=== PATIENT | female | born 1935 | race Caucasian/White ===

== ENCOUNTER 2017-04-20 12:39 | Inpatient (IN) ==
[2017-04-20 13:29] LABS: MANUAL DIFF NEEDED? NO
[2017-04-20 13:30] LABS: EOS# 0.29 X1000 (0.0-0.7); EOS% 3.8 % (0.0-10.0); HEMATOCRIT 33.3 % (37.0-47.0); HEMOGLOBIN 10.6 g/dL (12.0-16.0); LYMPH# 1.35 X1000 (1.2-3.4); LYMPH% 17.8 % (20.5-51.1); MCH 29.8 PG (27-31); MCHC 31.8 g/dL (33-37); MCV 93.5 FL (81-99); MONO# 0.66 X1000 (0.11-0.59); MONO% 8.7 % (1.7-9.3); MPV 11.3 FL (7.4-10.4); NEUT% 69.7 % (42.2-75.2); PLT 191 X1000 (130-400); RBC 3.56 XMIL (4.2-5.4)
[2017-04-20 13:42] LABS: URINE CULTURE PL NEEDED? NO
[2017-04-20 13:48] LABS: ALBUMIN 3.6 g/dL (3.5-5.0); CALCIUM 8.7 mg/dL (8.8-10.2); POTASSIUM 3.7 mmol/L (3.5-5.1); TOTAL BILIRUBIN 0.2 mg/dL (0.20-1.00); TOTAL PROTEIN 6.3 g/dL (6.3-8.3)
[2017-04-20 13:49] LABS: BILIRUBIN URINE NEGATIVE (NEGATIVE); BLOOD URINE NEGATIVE (NEGATIVE); CLARITY CLEAR (CLEAR); COLOR YELLOW; GLUCOSE URINE NEGATIVE (NEGATIVE); LEUKOCYTES URINE TRACE (NEGATIVE); NITRITE URINE NEGATIVE (NEGATIVE); PROTEIN URINE NEGATIVE (NEGATIVE); UROBILINOGEN URINE NORMAL
[2017-04-20 13:51] LABS: URINE EPITHELIAL CELLS <10 /HPF (<10); URINE SOURCE CLEAN CATCH; URINE WBC <10 /HPF (<10)
[2017-04-20] MEDS ORDERED: MORPHINE IV ONE (14:23)
[2017-04-20] MEDS ORDERED: ZOFRAN IV ONE (14:23)
--- NOTE | 2017-04-20 14:27 | EKG Report ---
Test Performed on : 04/20/2017 1:44:55 PM Test Reason : CP Blood Pressure : / mmHG Vent. Rate : 056 BPM Atrial Rate : 056 BPM P-R Int : 208 ms QRS Dur : 074 ms QT Int : 474 ms P-R-T Axes : 073 108 059 degrees QTc Int : 457 ms Sinus bradycardia. Rightward axis Possible Anterior infarct (cited on or before 17-MAY-2016) Abnormal ECG When compared with ECG of 17-MAY-2016 15:58, QRS axis shifted right Unconfirmed Result
--- NOTE | 2017-04-20 16:08 | Diag Imaging Result Doc PS360 ---
RENAL STONE SEARCH - 04/20/2017 INDICATION: abdominal pain TECHNIQUE: A CT dose reduction protocol was used. COMPARISON: CT lumbar spine 12/09/2015 FINDINGS: There is a moderate hiatal hernia. There is an implanted spinal device at the left abdomen. Stable severe scoliosis with surgical changes and severe degeneration of the thoracolumbar spine. There is a right hip prosthesis. There is severe degeneration of the sacroiliac joints. No acute bony lesions or changes from prior. There are cholecystectomy clips. No radiodense renal stones. No hydronephrosis or hydroureter. Uterus is absent. Urinary bladder and rectum are normal. There are some scattered diverticula of the sigmoid colon. No bowel obstruction or inflammation. There is some edema about the pancreas mostly the pancreatic head but also extending into the body and tail suggesting acute pancreatitis. No drainable fluid collections. No free air. IMPRESSION: 1. Acute pancreatitis worst at the pancreatic head. 2. There has been cholecystectomy. No biliary dilation. 3. Other chronic changes stable from prior. Electronically signed by Jone Miranda 04/20/2017 4:06 PM
--- NOTE | 2017-04-20 16:26 | PROVIDER DOCUMENTATION ---
This chart was entered by Kyra Rose Scribe, acting as scribe for Cheryl Garcia MD. HPI-Abdominal Pain/GI Problem - General Chief Complaint: Abdominal Pain Stated Complaint: ABDOMEN PAIN Time Seen by Provider: 04/20/17 12:55 Source: patient Allergies/Adverse Reactions: Patient Allergies Allergy/AdvReac Type Severity Reaction Status Date / Time acetaminophen [From Percocet] AdvReac NAUSEA/VOMI Verified 05/17/16 12:16 TING butorphanol tartrate * AdvReac ANAPHYLAXIS Verified 05/17/16 12:16 [From Stadol] codeine AdvReac NAUSEA/VOMI Verified 05/17/16 12:16 TING meperidine HCl * AdvReac NAUSEA/VOMI Verified 05/17/16 12:16 [From Demerol] TING nalbuphine HCl * AdvReac ANAPHYLAXIS Verified 05/17/16 12:16 [From Nubain] oxycodone HCl * AdvReac NAUSEA/VOMI Verified 05/17/16 12:16 [From Percocet] TING Home Medications: Home Medication List Medication Instructions Recorded Confirmed Last Taken Type Aspirin 81 mg PO DAILY 12/09/15 04/20/17 04/19/17 History Atenolol 50 mg PO DAILY 12/09/15 04/20/17 04/19/17 History Furosemide 40 mg PO DAILY 12/09/15 04/20/17 04/19/17 History Gabapentin [Neurontin] 300 mg PO TID 12/09/15 04/20/17 04/19/17 History Isosorbide Mononitrate E.r. [Imdur] 60 mg PO DAILY 12/09/15 04/20/17 04/19/17 History Lisinopril 20 mg PO DAILY 12/09/15 04/20/17 04/19/17 History Morphine ARCH CUSHION PRESS OPERATOR 30 mg IV DAILY 12/09/15 04/20/17 04/20/17 History Multivitamin [Multivitamins] 1 each PO DAILY 12/09/15 04/20/17 04/19/17 History Omeprazole 20 mg PO DAILY 12/09/15 04/20/17 04/19/17 History Potassium Chloride E.r. [Klor-Con] 20 meq PO DAILY 12/09/15 04/20/17 04/19/17 History Ranolazine [Ranexa] 500 mg PO BID 12/09/15 04/20/17 04/19/17 History - History of Present Illness-ABD Nature of Presenting Problems: Pt is 81 y/o F presents to the ED via EMS for epigastric pain. Pt states pain started 2 hrs ago. Pt states pain is gone presently. Pt states N and denies V Abdominal Pain Onset Location: reports: epigastric Pain Radiation: reports: no radiation Quality of Pain: reports: aching Severity in ED: reports: mild Onset/Duration: reports: 1-3 hours ago (2 hrs ago) Timing: reports: still present Activities at Onset: reports: light activity Modifying Factors: improves with: nothing Associated Symptoms: reports: nausea. denies: anxiety, arm pain, back/neck pain , chest pain, constipation, cough, diaphoresis, diarrhea, dizziness, EENT symptoms, fatigue, fever/chills, genitourinary problems, headaches, heartburn, joint pain, loss of appetite, malaise, muscle aches, sinus congestion/drainage, rash, seizure, shortness of breath, sensory/motor loss, pain with inspiration, swelling/mass in abdomen, syncope, vomiting, weakness, trouble walking Last BM: unsure Dark Stools Present?: reports: none noticed Rectal Bleeding: reports: none Rectal Pain: reports: none Emesis Description: reports: none Bruising or Bleeding Gums?: No Similar Symptoms Previously?: No Recently seen or treated by another doctor?: No Review of Systems - Adult - REVIEW OF SYSTEMS - ADULT Constitutional: reports: no symptoms reported Eyes: reports: no symptoms reported Ears, Nose, Mouth & Throat: reports: no symptoms reported Cardiovascular: reports: no symptoms reported Respiratory: reports: no symptoms reported Gastrointestinal: reports: abdominal pain (epigastric), nausea. denies: diarrhea, vomiting Genitourinary: reports: no symptoms reported Musculoskeletal: reports: no symptoms reported Integumentary: reports: no symptoms reported Neurological: reports: no symptoms reported Psychiatric: reports: no symptoms reported Endocrine: reports: no symptoms reported Hematologic/Lymphatic: reports: no symptoms reported Allergic/Immunologic: reports: no symptoms reported All Other Systems: Reviewed and Negative Past History - Adult - PAST MEDICAL HISTORY-ADULT Review of Records: reports: Nursing Assessment Review, Medications Reviewed, Social history reviewed & non-contributory. Major Childhood Illnesses: reports: denies history Cardiovascular: reports: CHF, HTN Respiratory: reports: denies history Gastrointestinal: reports: denies history Obstetrical/Gynecological: reports: denies history Genitourinary: reports: denies history Musculoskeletal: reports: denies history Neurological: reports: denies history Endocrine/Immune: reports: denies history Other Conditions: reports: denies history - PRIOR SURGERIES/PROCEDURES Surgical/Procedure History: reports: cholecystectomy, hysterectomy, joint replacement (total knee) - IMMUNIZATION STATUS Childhood Immunizations: See Nurse Assessment Flu Vaccine: See Nurse Assessment - FAMILY HISTORY Family History: reviewed, not pertinent - SOCIAL HISTORY Smoking: denies Substance Use: denies Living Situation: family Physical Exam-General - PHYSICAL EXAM-ADULT Initial Vital Signs Reviewed: Yes - CONSTITUTIONAL General Appearance: appears well, alert, no apparent distress - EYES Eyes: PERRL/EOMI, pink conjunctivae - HEAD, EARS, NOSE, MOUTH & THROAT HENMT: normocephalic/atraumatic, moist mucous membranes, normal ENT inspection - NECK Neck: non-tender, normal inspection - RESPIRATORY Respiratory: chest non-tender, lungs clear, normal breath sounds - CARDIOVASCULAR Cardiovascular: normal peripheral pulses, regular rate, rhythm - GASTROINTESTINAL (ABDOMEN) Abdominal Exam: normal bowel sounds, non tender, soft - LYMPHATIC Lymphatic: no adenopathy - MUSCULOSKELETAL Back Exam: normal inspection Extremity: normal range of motion, normal inspection - SKIN Integumentary: normal color, normal turgor, warm/dry - NEUROLOGIC Neurologic: grossly normal - PSYCHIATRIC Psych/Mental Status: normal mood/affect, oriented x 3 Progress - PLAN OF CARE/RESULTS Progress/Plan/Lab Results: Vital Signs - 8 hr 04/20/17 12:46 04/20/17 12:54 Temperature 97.2 F L Pulse Rate 60 Respiratory Rate 20 Blood Pressure 148/089 O2 Sat by Pulse Oximetry 97 Orders Category Date Time Status Saline Loc DIRECTED Care 04/20/17 13:06 Active NPO Diet 04/20/17 13:06 Active FLAT/UPRIGHT ABD/1 VIEW CHEST [RAD] Stat Exams 04/20/17 13:05 Ordered AMYLASE [CHEM] Stat Lab 04/20/17 13:06 Ordered CBC WITH ELECTRONIC DIFF [HEME] Stat Lab 04/20/17 13:06 Ordered COMPREHENSIVE METABOLIC PANEL [CHEM] Stat Lab 04/20/17 13:06 Ordered LIPASE [CHEM] Stat Lab 04/20/17 13:06 Ordered TROPONIN T Stat Lab 04/20/17 13:[address] W/POSS RFLX CULT [URINALYSIS] Stat Lab 04/20/17 13:06 Uncollected Result Diagrams: 04/20/17 13:24 04/20/17 13:24 - EKG 1 Time of EKG reading by physician:: 13:44 EKG Read and Signed by:: Cheryl Garcia EKG Interpretation (*Must complete 3 of following elements*): Abnormal Rate: 56 Rhythm: sinus bradycardia Comments: rightward axis; possible anterior infarct, age undetermined - CT/MRI 1 CT Study: Renal Stone Impression: Abnormal (there has been cholecystectomy. no biliary dilation. other chronic changes stable from prior.) CT Results: acute pancreatitis worst at the pancreatic head - CONSULTS/PCP/HOSPITALIST Notification #1 *Consult/PCP/Hospitalist*: Dr. Jensen Time Discussed: 16:22 (Hospitalist accepted admit ) Reason/Comments: Dr. Garcia consulted with Dr. Jensen about Pt Consult Disposition: Admit Departure - Departure Date of Disposition Decision: 04/20/17 Time of Disposition Decision: 16:22 DIAGNOSIS: Pancreatitis Disposition: ADMITTED INPATIENT 09 Certified Medical Emergency: Emergent Condition: Stable Referrals and Follow-Ups: None,PCP [Primary Care Provider] - - Critical Care Note This patient required my direct & personal management of CC.: No This chart was documented by the indicated scribe, (Kyra Rose Scribe) and accurately reflects the services I performed and decisions made by me, Cheryl Garcia MD, as attested by the provider's signature.
[2017-04-20] MEDS ORDERED: TYLENOL PO PRN (18:30)
[2017-04-20] MEDS ORDERED: ZOFRAN IV PRN (18:30)
[2017-04-20] MEDS: NS 1,000 ML IV SCH (19:25)
[2017-04-20] MEDS: MORPHINE IV PRN ×2 (19:25→23:23)
[2017-04-20] MEDS: ZOSYN 3.375 GM/NS 3.375 GM/50 ML IVPB IV SCH (20:15)
[2017-04-20] MEDS: RANEXA PO SCH ×2 (20:15→20:19)
[2017-04-21] MEDS: ZOSYN 3.375 GM/NS 3.375 GM/50 ML IVPB IV SCH ×4 (00:59→17:24)
[2017-04-21] MEDS: MORPHINE IV PRN ×5 (04:08→22:42)
[2017-04-21] MEDS ORDERED: PRILOSEC PO SCH (07:00)
[2017-04-21 07:39] LABS: HEMATOCRIT 36.1 % (37.0-47.0); HEMOGLOBIN 11.1 g/dL (12.0-16.0); MCH 29.1 PG (27-31); MCHC 30.7 g/dL (33-37); MCV 94.8 FL (81-99); MPV 11.6 FL (7.4-10.4); RBC 3.81 XMIL (4.2-5.4)
[2017-04-21 07:57] LABS: AGAP 11; ALBUMIN 3.4 g/dL (3.5-5.0); ALKALINE PHOSPHATASE 158 U/L (32-104); BUN 24 mg/dL (8-22); CALCIUM 8.8 mg/dL (8.8-10.2); CHLORIDE 103 mmol/L (98-107); COSMO 288; GOT 424 U/L (10-30); GPT 396 U/L (10-36); HDL 49 mg/dL (45-65); LDL 36 mg/dL; POTASSIUM 3.7 mmol/L (3.5-5.1); SODIUM 143 mmol/L (136-145); TCO2 30 mmol/L (25-35); TOTAL PROTEIN 5.9 g/dL (6.3-8.3); TRIGLYCERIDES 54 mg/dL (35-135); VLDL 11 mg/dL
[2017-04-21 08:04] LABS: LIPASE 547 U/L (13-60)
[2017-04-21] MEDS: NS 1,000 ML IV SCH (08:06)
[2017-04-21] MEDS: RANEXA PO SCH (08:07)
[2017-04-21] MEDS: NEURONTIN PO SCH ×2 (08:15→12:25)
[2017-04-21] MEDS ORDERED: KLOR-CON PO SCH (09:00)
[2017-04-21] MEDS ORDERED: PATIENT'S OWN MED SCH (09:00)
[2017-04-21] MEDS ORDERED: THERA M PLUS PO SCH (09:00)
[2017-04-21] MEDS ORDERED: PRINIVIL PO SCH (09:00)
[2017-04-21] MEDS ORDERED: ASPIRIN PO SCH (09:00)
[2017-04-21] MEDS ORDERED: IMDUR PO SCH (09:00)
[2017-04-21] MEDS ORDERED: TENORMIN PO SCH (09:00)
[2017-04-21] MEDS ORDERED: LASIX PO SCH (09:00)
--- NOTE | 2017-04-21 09:03 | Diag Imaging Result Doc PS360 ---
EXAM: FLAT/UPRIGHT ABD/1 VIEW CHEST HISTORY: Epigastric pain TECHNIQUE: Flat and upright abdomen with AP chest COMMENT: There is rotoscoliosis of the lumbar spine with convexity to the left. There is apparently been fusion from the L1 level down. The bowel gas pattern is nonspecific. There are surgical clips in the right upper quadrant. There is severe degenerative change in the sacroiliac joints bilaterally. The aorta is calcified but not apparently distended. The appearance of the chest has not changed significantly since the previous study of 05/17/2016. IMPRESSION: Nonspecific abdomen. Stable chest. Electronically signed by Manuel Gallegos 04/21/2017 9:01 AM
--- NOTE | 2017-04-21 09:54 | PROGRESS NOTE ---
DATE: 04/21/2017 SUBJECTIVE: The patient notes that she is feeling a little bit better this morning. Still having abdominal pain, still nauseated, but she also just woke up. Denies any chest pain or palpitations. Denies any fevers or chills. OBJECTIVE: Vital Signs: Reviewed. Temperature 97 degrees, pulse 67 respiratory 20, BP 160/90 to 174/82. General: Patient is awake, alert. She is currently in no respiratory distress. Pleasant to talk with. Neck: Supple. CV: Regular rate. Chest: Clear. Abdomen: Soft, slightly tender in the epigastric region although better than yesterday. Positive bowel sounds. Extremities: Moves all extremities. No edema. Neurologic: No focal changes. DIAGNOSTIC DATA: Pending. ASSESSMENT: 1. Acute pancreatitis. 2. Hypertension. 3. Chronic pain. 4. Chronic neuropathy. PLAN: We will continue patient's current medications. We will check her labs. If amylase and lipase are improving, then we will try to advance her diet. Further orders as needed. cc: Fox eJnsen MD
--- NOTE | 2017-04-21 14:39 | HISTORY AND PHYSICAL ---
CHIEF COMPLAINT: Upper GI pain. HISTORY OF PRESENT ILLNESS: This is an 81-year-old female who presented to the emergency room via EMS complaining of epigastric pain. She stated it started 2 hours prior to coming to the emergency room. By the time she got to the emergency room pain had subsided. She described this as an aching type pain with no radiation, no accompanying symptoms. No aggravating or alleviating symptoms. It was a spontaneous start and stop. She denies having this pain before. She has had some nausea over the past day or [address] scan was performed which revealed acute pancreatitis worse at the pancreatic head, a moderate-sized hiatal hernia. She was noted to have an amylase of 138, lipase of 447. She was given morphine and Zofran in the emergency room and admitted for further evaluation and treatment. PAST MEDICAL HISTORY: Hypertension. CAD. Chronic pain with a pain pump in her left lower abdomen with morphine. Reportedly CHF. PAST SURGICAL HISTORY: Cholecystectomy, hysterectomy, total knee replacement and pain pump insertion. SOCIAL HISTORY: She denies alcohol, tobacco, or illicit drug use. ALLERGIES: Tylenol, Percocet. Percocet causes nausea and vomiting. Stadol causes anaphylaxis. Codeine with nausea and vomiting. Demerol nausea and vomiting. Nubain anaphylaxis. HOME MEDICATIONS: Klor-Con 20 mEq daily. Atenolol 50 daily. Aspirin 81 mg daily. Imdur 60 daily. Neurontin 300 t.i.d. Furosemide 40 daily. Omeprazole 20 daily. Multivitamin daily. Morphine via pain pump. Lisinopril 20 mg daily and Ranexa 500 b.i.d. REVIEW OF SYSTEMS: A 14 point review of systems is discussed with the patient with pertinent positives stated in HPI. She denied palpitations, dizziness, syncope, chest pain, vomiting, diarrhea, constipation, black or bloody vomitus, black or bloody stools, any hematuria, dysuria, frequency, urgency. PHYSICAL EXAMINATION: GENERAL: This is an 81-year-old female who is sitting up in the bed, in no distress. VITAL SIGNS: Blood pressure is 170/80 with a heart rate of 66, respirations are 18, temperature is 98.2 degrees with room air saturations of 98-100%. HEENT: Head is normocephalic, atraumatic. Pupils equal, round, react to light. EOMs are intact. Sclerae anicteric. Mucous membranes are dry. NECK: Supple. Trachea midline. CARDIOVASCULAR: Regular rate and rhythm. S1, S2 appreciated. PULMONARY: Breath sounds are clear. No increased work of breathing noted. GASTROINTESTINAL: Abdomen is soft, nondistended with bowel sounds in all 4 quadrants. MUSCULOSKELETAL: Good range of motion of joints. NEUROLOGIC: She is alert and oriented x3. EXTREMITIES: No clubbing, cyanosis, or edema. Calves are nontender. Pulses are palpable x4. DIAGNOSTICS: WBC is 7.5 with hemoglobin 10.6, hematocrit 33.3. AST is 101, ALT 58 with a amylase of 138, lipase of 447. These labs were repeated. AST is 424, ALT 396, alkaline phosphatase 158 with amylase [address] scan revealed pancreatitis. ASSESSMENT AND PLAN: 1. Pancreatitis. 2. Hypertension. 3. History of CAD. 4. Chronic pain with pain pump in place. Morphine infusing. The patient will be admitted to the hospital. She will remain NPO. As labs have increased we will consult Dr. Maradiaga in Gastroenterology in hopes to transfer the patient to [facility] for further testing. We will identify her home medications and continue as appropriate. Further treatments pending hospital course. Dictated by CLAUDINE Alex for Fox Jensen MD cc: CLAUDINE Alex MD
[2017-04-21] MEDS ORDERED: TYLENOL PO PRN (17:00)
[2017-04-21] MEDS ORDERED: ZOFRAN IV PRN (17:00)
[2017-04-21] MEDS ORDERED: NEURONTIN PO SCH (17:00)
[2017-04-21] MEDS ORDERED: NS 1,000 ML IV SCH (17:00)
[2017-04-21] MEDS: LR 1,000 ML IV SCH (18:56)
--- NOTE | 2017-04-21 19:39 | PROGRESS NOTE ---
DATE: 04/21/2017 SUBJECTIVE: She presented from [facility] today. She basically presented because of abdominal pain and nausea. She was admitted there and it was found out that she has abnormal lab work and CT scan so she was referred here for Dr. Maradiaga to evaluate her. I reviewed all her lab work. ASSESSMENT: 1. Biliary pancreatitis. 2. Chronic pain on morphine pump. 3. Chronic neuropathy. 4. Hypertension. 5. History of cholecystectomy. 6. History of congestive heart failure. PLAN: We are going to keep the patient NPO so we will withhold all her p.o. medications at least for today until the acute pancreatic inflammation subsides and then we will restart her medications and feeding. Dr. Maradiaga has already been consulted hopefully for a plan of ERCP to look at CBD. Of note, the patient had a renal CT scan which picked up acute pancreatitis worse at the pancreatic head but there was no biliary dilation. I suspect this probably could be just sludge that she might have, but she is probably going to end up needing an ERCP to make sure there is no obstruction in the CBD. We will continue currently with the current antibiotics, PPI, hydration with lactated Ringer's and repeat her labs tomorrow morning. cc: Enio Al MD
[2017-04-21] MEDS ORDERED: BUSPAR PO SCH (21:00)
[2017-04-21] MEDS ORDERED: RANEXA PO SCH (21:00)
[2017-04-22] MEDS: DILAUDID IV PRN ×4 (00:46→09:35)
[2017-04-22] MEDS: ZOSYN 3.375 GM/NS 3.375 GM/50 ML IVPB IV SCH ×4 (00:53→20:00)
[2017-04-22] MEDS ORDERED: PRILOSEC PO SCH (07:00)
--- NOTE | 2017-04-22 08:07 | Diag Imaging Result Doc PS360 ---
EXAM: US ABDOMEN-COMPLETE HISTORY: Gall stone pancreatitis, check CBD size TECHNIQUE: COMPARISON: CT from 04/20/2017 FINDINGS: The majority of the pancreas is obscured. Portions of the head and body appear normal. The common bile duct near the ampulla measures 1.1 cm. Elsewhere the common bile duct measures between five and 10 mm. There is fatty infiltration of the liver. Spleen is not enlarged. No hydronephrosis to either kidney. No renal abnormalities. No ascites. The aorta and inferior vena cava are obscured. IMPRESSION: 1.The common bile duct measures between five and 11 mm 2.Fatty infiltration of the liver Electronically signed by Low Rodriguez 04/22/2017 8:05 AM
[2017-04-22 08:29] LABS: HEMOGLOBIN 11.7 g/dL (12.0-16.0); MCH 29.7 PG (27-31); MCHC 31.6 g/dL (33-37); MCV 93.9 FL (81-99); MPV 11.4 FL (7.4-10.4); RBC 3.94 XMIL (4.2-5.4)
[2017-04-22 08:38] LABS: CALCIUM 9.3 mg/dL (8.8-10.2); POTASSIUM 3.7 mmol/L (3.5-5.1); TOTAL BILIRUBIN 0.5 mg/dL (0.20-1.00); TOTAL PROTEIN 6.7 g/dL (6.3-8.3)
[2017-04-22] MEDS ORDERED: KLOR-CON PO SCH (09:00)
[2017-04-22] MEDS ORDERED: THERA M PLUS PO SCH (09:00)
[2017-04-22] MEDS ORDERED: ASPIRIN PO SCH (09:00)
[2017-04-22] MEDS ORDERED: IMDUR PO SCH (09:00)
[2017-04-22] MEDS ORDERED: PATIENT'S OWN MED SCH (09:00)
[2017-04-22] MEDS ORDERED: LASIX PO SCH (09:00)
[2017-04-22] MEDS ORDERED: PRINIVIL PO SCH (09:00)
[2017-04-22] MEDS ORDERED: TENORMIN PO SCH (09:00)
[2017-04-22] MEDS: LR 1,000 ML IV SCH ×3 (09:22→20:08)
[2017-04-22] MEDS ORDERED: NARCAN IV PRN (09:28)
[2017-04-22] MEDS: DILAUDID PCA VIAL IV PRN (09:53)
[2017-04-22 11:55] LABS: INR 1.05; PROTIME 11.1 Seconds (9.2-11.7)
[2017-04-22] MEDS ORDERED: NS 250 ML ONE (12:30)
--- NOTE | 2017-04-22 14:29 | PROGRESS NOTE ---
DATE: 04/22/2017 SUBJECTIVE: Today Ms. Gillespie referred to be doing a little better but she is tired. I understand she had a very rough night and they had to call Anesthesia for pain control. Patient is currently on a low dose of Dilaudid MARINE EQUIPMENT ENGINEER pump prescribed by the anesthesiologist. OBJECTIVE: Vital Signs: Blood pressure is 154/79, pulse of 60, respiration is 15, temperature is 98.7 degrees. General Exam: Ms. Gillespie is an 81-year-old female. She is in bed, does not seem to be in any remarkable distress. HEENT: Mucosa is pink and moist. Anicteric. Acyanotic. Neck: Supple. Chest: Good air entry bilaterally. No crepitations. Cardiovascular: Regular rate and rhythm. Abdomen: Soft. Mildly tender in the epigastrium and periumbilical. Extremities: No pedal edema. QUALITY INTERN: Patient is awake, alert, follows commands. There is no focal neurological deficit. LABORATORY DATA: WBC 7.44, hemoglobin is 11.7, platelet count of 208,000. Chemistry is reviewed, completely normal. AST is down to 179, ALT down to 281, alkaline phosphatase is also slightly down, to 147. C-reactive protein is 18.89, and repeat lipase is also down to 84. IMAGING: An ultrasound that was done shows CBD measures between 5 and 11 mm. The CBD near the ampulla measures about 1.7 which is dilated and there is a question if there is either a stone or not. ASSESSMENT: 1. Biliary pancreatitis with an ultrasound suggesting mild dilation of common bile duct near the ampullary. There is a question of not sure if this is due to a stone or some other obstructive structure causing this. I think patient would eventually benefit from the ERCP. We will be waiting on Dr. Maradiaga's evaluation to go from there. 2. Chronic pain syndrome. Patient is already on morphine pump. However last night Anesthesia was consulted and patient has been placed on low-dose Dilaudid pump as well. We are going to be extremely careful with the use of sedatives, especially in the elderly since it easily let them be extremely confused, especially in the hospital. 3. Chronic neuropathy noted. 4. Hypertension. 5. History of cholecystectomy. 6. History of congestive heart failure. So in general, a think Ms. Gillespie is a little better. All her enzymes are much better. However the ultrasound findings is worrisome and I think the patient eventually will need and ERCP. We are, however, waiting on Dr. Maradiaga for further recommendations. cc: Enio Al MD
--- NOTE | 2017-04-22 15:37 | CONSULTATION ---
DATE OF CONSULTATION: 04/22/2017 REASON FOR REFERRAL: Abdominal pain, nausea, vomiting. HISTORY OF PRESENT ILLNESS: This is an 81-year-old female, who presented to the emergency room at [facility] for abdominal pain. She reports onset of symptoms about 2 hours prior to coming to the emergency room. She states the pain would come and go. She had some nausea. CT scan showed acute pancreatitis, worse at the pancreatic head, and a moderate size hiatal hernia. She had elevated amylase and lipase and also had elevated liver function tests. Dr. Maradiaga saw the patient yesterday afternoon, he ordered an ultrasound for this morning. An ultrasound was done that showed common bile duct near the ampulla measuring 1.1 cm. Elsewhere the common bile duct measured between 5 and 10 mm. There was noted fatty infiltration of the liver. No enlargement of the spleen noted. No hydronephrosis. No ascites. The patient continues to complain of abdominal pain and nausea. She has a pain pump in use. PAST MEDICAL HISTORY: Hypertension, coronary artery disease. History of congestive heart failure. PAST SURGICAL HISTORY: History of cholecystectomy over 10 years ago. Hysterectomy. Total knee replacement. She has an internal pain pump to left abdomen due to chronic pain. SOCIAL HISTORY: Denies tobacco or alcohol use. ALLERGIES: Acetaminophen causing nausea and vomiting. Stadol causing anaphylaxis, codeine causes nausea and vomiting. Demerol causes nausea and vomiting. Nubain anaphylaxis. Percocet, nausea vomiting Home. MEDICATIONS: 1. BuSpar 7.5 mg twice daily. 2. Klor-Con 20 mEq daily. 3. Atenolol 50 mg daily. 4. Aspirin 81 mg daily. 5. Imdur 60 mg daily. 6. Neurontin 300 mg 3 times daily. 7. Lasix 40 mg daily. 8. Omeprazole 20 mg daily. 9. Multivitamin daily. 10. Lisinopril 20 mg daily. 11. Ranexa 500 mg twice daily. REVIEW OF SYSTEMS: Per HPI. PHYSICAL EXAM: Vital Signs: Temperature 98.7 degrees, pulse 60, respirations 14, blood pressure 154/79. General: Patient is awake and alert. She is lying in the bed with a washcloth over her head. She is complaining of some abdominal pain. She has a HYDROGENATION STILL OPERATOR pump at the bedside that she is using. HEENT: Normocephalic, atraumatic. Pupils equal, round, reactive to light. Sclerae are nonicteric. Cardiovascular: Regular rate and rhythm. Respiratory: Lung sounds clear bilaterally. Abdomen: Soft, nondistended, positive bowel sounds. Tenderness diffusely with palpation. Extremities: No lower extremity edema noted. Pedal pulses present bilaterally. DIAGNOSTIC DATA: Laboratory: Hematology; white count 7.44, hemoglobin 11.7, hematocrit 37.0, MCV 93.9, platelets 208,000. Coagulation: ProTime 11.1, INR 1.05. Chemistry; sodium 142, potassium 3.7, chloride 97, CO2 29, BUN 23, creatinine 0.9. Total bilirubin 0.50, AST 179 , ALT 278, alkaline phosphatase 147. This is down from yesterday where AST was 424, ALT 396, alkaline phosphatase 158. C-reactive protein 18.89, amylase 132, lipase 84, this is down from yesterday, amylase was 253, lipase 547. ASSESSMENT AND PLAN: 1. Abdominal pain. 2. Nausea. 3. Pancreatitis. 4. Elevated liver function tests. 5. Abnormal radiology studies suggesting possibility of a common bile duct stone or stricture. Will plan to proceed with an ERCP when available with OR scheduling. I have discussed the procedure along with the benefits and risks with the patient and her family. They wished to proceed. I have discussed this case with Dr. Maradiaga, and Dr. Maradiaga has also seen and evaluated the patient last evening. Thank you for this consultation. Dictated by CLAUDINE Louis for Abiel Maradiaga MD cc: CLAUDINE Novak MD [facility]
[2017-04-22] MEDS ORDERED: DIPRIVAN 1% 500 MG/50 ML BOTTLE ONE (15:49)
[2017-04-22] MEDS ORDERED: FENTANYL ONE (15:59)
[2017-04-22] MEDS ORDERED: XYLOCAINE-MPF 2% ONE (16:00)
[2017-04-22] MEDS ORDERED: GLUCAGON ONE ×3 (16:02→16:27)
[2017-04-22] MEDS ORDERED: ZOFRAN ONE (17:08)
--- NOTE | 2017-04-22 17:52 | OPERATIVE NOTE ---
PROCEDURE DATE: 04/22/2017 PROCEDURE: 1. Endoscopic retrograde cholangiopancreatography. 2. Sphincterotomy. 3. Stent placement. MEDICATION USED: MAC as per Anesthesia. SCOPE USED: Olympus duodenoscope. HISTORY: This is an 81-year-old white female who presented with abdominal pain and was found to have pancreatitis but her LFTs were significant elevated also. The imaging studies showed slightly dilated common bile duct. MRCP could not be done on her because of her hardware in her back. ERCP was done for diagnostic as well as therapeutic purposes, especially because of the possibility of gallstone pancreatitis. DESCRIPTION OF PROCEDURE: Informed consent obtained from the patient and her daughter. The procedure risks, benefits, alternatives were explained in layman's terms. They understood. All the pertinent questions answered. Patient was brought to the endoscopy unit and was premedicated as per Anesthesia. After adequate sedation, while she was lying in left lateral position, the duodenoscope was introduced into the posterior pharynx and advanced manually into the esophagus, through the esophagus, it was advanced to the stomach. Stomach was insufflated. The pylorus was identified. There was evidence of hemorrhagic gastritis in the stomach. The scope was then passed through the normal pylorus, into the duodenal bulb, and 2nd part duodenum where major papilla was identified which was a little patulous but the opening was very small. Using a reusable cannula, the common bile duct was preferentially cannulated. Contrast injected, cholangiogram obtained which revealed evidence of cholecystectomy and the common bile duct was slightly dilated but I did not see any presence of any filling defects within the common bile duct. However, there was a possibility that the stone may have floated back into the hepatic portion of the biliary system. At this point, I went ahead and proceeded with the sphincterotomy. After adequate sphincterotomy, I went ahead and placed an 8.5 Syriac 5 cm long plastic stent in the distal common bile duct without any difficulty. Good flow was noted. At this point the scope was withdrawn. Patient tolerated the procedure with no complications noted. Patient was then transferred to the recovery area in a stable condition. IMPRESSION: 1. Gallstone pancreatitis with slightly dilated common bile duct. 2. Elevated liver function tests. 3. Surgical changes suggestive of cholecystectomy. RECOMMENDATION: We will continue to monitor her labs and hydrate her. Continue symptomatic treatment for nausea and vomiting. Keep her still NPO and further plans made according to her progress. She will need to have her repeat ERCP done once she is stabilized and can be done as an outpatient, where her stent will be removed at this point. At that point, I will re-examine her biliary system to see if there was any stone that will be removed at that time. cc: Abiel Maradiaga MD
--- NOTE | 2017-04-22 19:03 | Diag Imaging Result Doc PS360 ---
EXAM: ERCP-BILIARY AND PANCREATIC INDICATION: STENT PLACEMENT TECHNIQUE: COMPARISON: None. FINDINGS: Two spot fluoroscopic views were provided, which were performed during ERCP by Dr. Maradiaga. The common bile duct appears dilated. No discrete filling defect is identified on these limited images. On the final image there is a newly placed biliary stent in place in the expected position. IMPRESSION: As above. Electronically signed by Jethro Holbrook 04/22/2017 7:00 PM
[2017-04-23] MEDS: ZOSYN 3.375 GM/NS 3.375 GM/50 ML IVPB IV SCH ×4 (02:37→22:03)
[2017-04-23] MEDS: LR 1,000 ML IV SCH ×3 (04:26→17:43)
[2017-04-23] MEDS: DILAUDID PCA VIAL IV PRN (06:49)
[2017-04-23 07:02] LABS: AGAP 17; ALBUMIN 3.5 g/dL (3.5-5.0); ALKALINE PHOSPHATASE 121 U/L (32-104); BUN 16 mg/dL (8-22); CALCIUM 9.5 mg/dL (8.8-10.2); CHLORIDE 101 mmol/L (98-107); COSMO 291; GOT 94 U/L (10-30); GPT 195 U/L (10-36); POTASSIUM 3.7 mmol/L (3.5-5.1); SODIUM 146 mmol/L (136-145); TCO2 28 mmol/L (25-35); TOTAL BILIRUBIN 0.39 mg/dL (0.20-1.00); TOTAL PROTEIN 6.1 g/dL (6.3-8.3)
[2017-04-23 07:03] LABS: EOS% 0.4 % (0.0-10.0); HEMOGLOBIN 11.2 g/dL (12.0-16.0); MANUAL DIFF NEEDED? NO; MCV 94.9 FL (81-99)
[2017-04-23 09:22] LABS: BASO% 0.1 % (0.0-0.8); EOS# 0.03 X1000 (0.0-0.7); HEMATOCRIT 35.7 % (37.0-47.0); IMM GRAN# 0.02 X1000 (0.0-0.04); IMM GRAN% 0.2 % (0.0-0.5); LYMPH# 1.85 X1000 (1.2-3.4); LYMPH% 22.4 % (20.5-51.1); MCH 29.8 PG (27-31); MCHC 31.4 g/dL (33-37); MONO# 0.81 X1000 (0.11-0.59); MONO% 9.8 % (1.7-9.3); NEUT% 67.1 % (42.2-75.2); PLT 222 X1000 (130-400); RBC 3.76 XMIL (4.2-5.4)
[2017-04-23] MEDS ORDERED: PERCOCET-5 PO PRN (11:35)
[2017-04-23] MEDS: DILAUDID IV PRN ×4 (13:46→23:01)
[2017-04-23] MEDS: NEURONTIN PO SCH ×2 (13:51→22:03)
--- NOTE | 2017-04-23 14:39 | PROGRESS NOTE ---
DATE: 04/23/2017 SUBJECTIVE: Today Ms. Rosario Gillespie referred to be doing a little better. She was actually sitting up in a chair. Of course she complains of pains all over her body, but she wants to see if she can start drinking and eating something. OBJECTIVELY: Vitals Signs: Seem to be stable. Blood pressure is 148/78, pulse of 73, respiration is 18, temperature 97.5 degrees. General: Ms. Gillespie is an 81-year-old female. She was sitting up in a chair, in no distress. HEENT: Mucosa is pink and moist. Anicteric. Acyanotic. Neck: Supple. Chest: Clear. Cardiovascular: Regular rate and rhythm. Abdomen: Soft, mildly tender around the periumbilical region. Extremities: No pedal edema. 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 There is no focal neurological deficit. LABORATORY DATA: WBC is 8.27, hemoglobin is 11.2, platelet count of 222,000. Chemistries reviewed: Sodium is 148, potassium is 3.7, chloride is 101, bicarb is 28, AST is down to 94, ALT is down to 194. Alkaline phosphatase is also down to 121. IMAGING: Upon review of surgical notes yesterday by Dr. Maradiaga, ERCP was done, sphincterectomy and stent placement was likewise done. ASSESSMENT: 1. Biliary pancreatitis status post endoscopic retrograde cholangiopancreatography with sphincterectomy and stent placement. Patient seems to be doing fine. Liver function test is improving. We are going to continue with the current care, hopefully discharge the patient soon. 2. Chronic pain syndrome. Anesthesia was consulted. Patient was has been on both Dilaudid pump and the morphine pump that she normally has. We are going to go ahead and discontinue the Dilaudid pump from today, restart her on some oral pain medications. 3. Chronic peripheral neuropathy. Patient is on gabapentin, it has been restarted. 4. Hypertension. Stable. 5. History of congestive heart failure. So in general, I think Ms. Gillespie is doing fine. She is status post 1 day ERCP with sphincterotomy and stent placement. Enzymes are doing better. We will going to discontinue the Dilaudid pump and start her on some oral medications. We anticipate to discharge Ms. Gillespie maybe tomorrow or the day after. cc: Enio Al MD
--- NOTE | 2017-04-23 15:24 | PROGRESS NOTE ---
DATE: 04/23/2017 SUBJECTIVE: Patient is resting comfortably, did not have any complaints of pain or discomfort. However she has required pain medication. She has tolerated clear liquids well. She has not had any nausea or vomiting, and she thinks she is feeling better than yesterday. She did get up and sat on the bedside chair. OBJECTIVE: Vital Signs: Temperature 97.9 degrees, pulse 73, breathing 18, blood pressure 148/76. Abdomen: Full, soft, but tender in the epigastric area. No rebound tenderness or guarding noted. Bowel sounds are audible. DIAGNOSTIC DATA: Sodium 146, potassium 3.7, chloride 101, bicarb 28, BUN is 16 , creatinine 0.8. LFT: Her AST is 94, ALT 195, alkaline phosphatase 121. Amylase and lipase was not done, requested to get amylase and lipase on the blood drawn this morning. IMPRESSION: Acute pancreatitis, most likely gallstone pancreatitis, with elevated liver function tests. Symptoms have improved. She has been on clear liquid and tolerating diet well. She had an endoscopic retrograde cholangiopancreatography, sphincterotomy, and stent placed to decompress her biliary system yesterday, and she had tolerated the procedure well and she has done well since then. I would continue her symptomatic treatment, continue hydration, continue to recheck labs, and we will follow. Depending on her progress, further plans made. And she will need ERCP and stent removal in 4-6 weeks. cc: Abiel Maradiaga MD MTDD
[2017-04-23] MEDS: BUSPAR PO SCH (22:03)
[2017-04-24] MEDS: ZOSYN 3.375 GM/NS 3.375 GM/50 ML IVPB IV SCH ×2 (01:30→10:05)
[2017-04-24] MEDS: DILAUDID IV PRN ×7 (01:30→22:15)
[2017-04-24] MEDS: LR 1,000 ML IV SCH ×2 (07:00→20:33)
[2017-04-24 07:04] LABS: MANUAL DIFF NEEDED? NO
[2017-04-24 07:06] LABS: BASO% 0.1 % (0.0-0.8); EOS% 2.3 % (0.0-10.0); HEMATOCRIT 33.9 % (37.0-47.0); HEMOGLOBIN 10.9 g/dL (12.0-16.0); IMM GRAN# 0.02 X1000 (0.0-0.04); IMM GRAN% 0.2 % (0.0-0.5); LYMPH# 1.69 X1000 (1.2-3.4); LYMPH% 19.4 % (20.5-51.1); MCH 30.4 PG (27-31); MCHC 32.2 g/dL (33-37); MCV 94.4 FL (81-99); MONO# 0.77 X1000 (0.11-0.59); MONO% 8.8 % (1.7-9.3); NEUT% 69.2 % (42.2-75.2); PLT 180 X1000 (130-400); RBC 3.59 XMIL (4.2-5.4)
[2017-04-24 07:32] LABS: AGAP 12; ALBUMIN 3.5 g/dL (3.5-5.0); ALKALINE PHOSPHATASE 106 U/L (32-104); BUN 11 mg/dL (8-22); CHLORIDE 100 mmol/L (98-107); COSMO 284; GOT 53 U/L (10-30); GPT 129 U/L (10-36); POTASSIUM 3.5 mmol/L (3.5-5.1); SODIUM 143 mmol/L (136-145); TCO2 31 mmol/L (25-35); TOTAL BILIRUBIN 0.41 mg/dL (0.20-1.00)
[2017-04-24] MEDS: BUSPAR PO SCH ×2 (10:09→20:38)
[2017-04-24] MEDS: NEURONTIN PO SCH ×3 (10:11→20:34)
[2017-04-24] MEDS: PEPCID PO SCH ×2 (13:30→20:38)
--- NOTE | 2017-04-24 14:06 | PROGRESS NOTE ---
DATE: 04/24/2017 SUBJECTIVE: This morning, I was told Ms. Gillespie was hurting very badly on the left side of the upper abdomen. However, this afternoon she seems to be doing fine. She was actually requesting to eat. OBJECTIVE: Vital Signs: Stable. Blood pressure is 154/74, pulse of 67, respirations 18, temperature is 97.4 degrees. General: Ms. Gillespie is an 81-year-old female. She is in bed, not seemingly distressed. HEENT: Mucosa is pink and moist. Anicteric and acyanotic. Neck: Supple. Chest: Clear. Cardiovascular: Regular rate and rhythm. There are no murmurs. Abdomen: Soft. Mildly tender in the periumbilical area. I did not feel any hepatosplenomegaly. Extremities: No pedal edema. SOFTWARE QUALITY ANALYST: Patient is awake and alert. LABORATORY DATA: WBC is 8.71, hemoglobin is 10.9, platelet count of 180,000. Chemistry is reviewed. Completely normal. AST is 53, ALT is 129, alkaline phosphatase is 106. C-reactive protein is down to 6.6 and lipase is also down to 131. ASSESSMENT: 1. Post acute biliary pancreatitis status post ERCP with sphincterectomy and stent placement. 2. Chronic pain syndrome. 3. Chronic peripheral neuropathy. 4. Hypertension. 5. History of congestive heart failure. Currently euvolemic. 6. Abdominal pain this morning. I am not quite sure what that was. According to the daughters the patient passed some gas and since then, the abdominal pain resolved. We will continue the patient on the proton pump inhibitor, discontinue the antibiotics and continue with the hydration. I will also continue with a clear liquid diet. Hopefully, we will be able to advance this to a full liquid diet later on today. cc: Enio Al MD MTDD
[2017-04-24] MEDS: CARAFATE PO SCH (20:38)
[2017-04-25] MEDS: DILAUDID IV PRN ×8 (02:21→23:17)
[2017-04-25 07:56] LABS: MANUAL DIFF NEEDED? NO
[2017-04-25] MEDS: BUSPAR PO SCH ×2 (08:27→20:58)
[2017-04-25] MEDS: CARAFATE PO SCH ×2 (08:27→20:58)
[2017-04-25] MEDS: NEURONTIN PO SCH ×3 (08:27→20:59)
[2017-04-25] MEDS: PEPCID PO SCH ×2 (08:28→20:58)
[2017-04-25 08:33] LABS: BASO% 0.1 % (0.0-0.8); EOS# 0.35 X1000 (0.0-0.7); EOS% 4.7 % (0.0-10.0); HEMATOCRIT 32.7 % (37.0-47.0); HEMOGLOBIN 10.5 g/dL (12.0-16.0); LYMPH# 1.77 X1000 (1.2-3.4); LYMPH% 23.7 % (20.5-51.1); MCH 30.9 PG (27-31); MCHC 32.1 g/dL (33-37); MCV 96.2 FL (81-99); MONO# 0.82 X1000 (0.11-0.59); MPV 11.3 FL (7.4-10.4); NEUT% 60.5 % (42.2-75.2); PLT 162 X1000 (130-400)
[2017-04-25 08:35] LABS: AGAP 9; ALBUMIN 3.3 g/dL (3.5-5.0); ALKALINE PHOSPHATASE 91 U/L (32-104); BUN 6 mg/dL (8-22); CALCIUM 9.1 mg/dL (8.8-10.2); CHLORIDE 101 mmol/L (98-107); COSMO 278; GOT 35 U/L (10-30); GPT 91 U/L (10-36); POTASSIUM 3.2 mmol/L (3.5-5.1); SODIUM 141 mmol/L (136-145); TCO2 31 mmol/L (25-35); TOTAL BILIRUBIN 0.34 mg/dL (0.20-1.00); TOTAL PROTEIN 5.9 g/dL (6.3-8.3)
[2017-04-25] MEDS: LR 1,000 ML IV SCH (11:02)
[2017-04-25 13:45] LABS: AMYLASE 70 U/L (20-200); LIPASE 74 U/L (13-60)
--- NOTE | 2017-04-25 16:41 | PROGRESS NOTE ---
DATE: 04/25/2017 SUBJECTIVE: Today, Ms. Gillespie referred to be doing a lot better. Still has some residual right side abdominal pain but she is tolerating her diet and has had a bowel movement. OBJECTIVE: Vital signs: Blood pressure is 161/72, pulse of 72, respirations 18, temperature 98.3 degrees. General: Ms. Gillespie is an 81-year-old female. She is in bed, not in any distress. HEENT: Mucosa is pink and moist. Anicteric. Acyanotic. Neck: Supple. Chest: Clear. Cardiovascular: Regular rate and rhythm. There is no murmurs. No rubs, no gallops. Abdomen: Soft. Mildly tender around the left flank. There is a palpable implanted pump at the left periumbilical to flank area. No hepatosplenomegaly. Extremities: No pedal edema. COMPOUNDER HELPER: Patient is awake and alert and oriented x4. There is no focal neurological deficit. LABORATORY DATA: WBC is 7.46, hemoglobin is 10.5, platelet count 162,000. Chemistry is reviewed. Completely normal. Potassium is 3.2. Liver enzymes: AST is down to 35. ALT is down to 91. Alkaline phosphatase has normalized. Lipase is 74. ASSESSMENT: 1. Acute biliary pancreatitis status post ERCP with sphincterectomy and stent placement. 2. Chronic pain syndrome. Patient is on morphine pump. 3. Chronic peripheral neuropathy. 4. Hypertension. 5. History of congestive heart failure. Currently euvolemic. DISPOSITION: Ms Gillespie is doing fine. We had her do physical therapy this morning and she seems to have tolerated it. We are going to advance her diet to GI soft diet. If she is able to tolerate that, we will be able to discharge her home tomorrow. We will also discontinue the IV fluids and ask her to sit up in chair. Continue with physical therapy and hopefully send her home tomorrow with home health if she is able to tolerate her GI soft diet. I have consulted social and political studies professor for home health consult. cc: Enio Al MD
[2017-04-26] MEDS: DILAUDID IV PRN ×4 (01:12→10:35)
[2017-04-26 06:51] LABS: MANUAL DIFF NEEDED? NO
[2017-04-26 07:08] LABS: BASO% 0.1 % (0.0-0.8); EOS# 0.44 X1000 (0.0-0.7); EOS% 5.4 % (0.0-10.0); HEMATOCRIT 33.8 % (37.0-47.0); HEMOGLOBIN 10.9 g/dL (12.0-16.0); LYMPH% 22.1 % (20.5-51.1); MCHC 32.2 g/dL (33-37); MCV 93.1 FL (81-99); MONO# 1.01 X1000 (0.11-0.59); MONO% 12.4 % (1.7-9.3); MPV 11.3 FL (7.4-10.4); PLT 186 X1000 (130-400); RBC 3.63 XMIL (4.2-5.4)
[2017-04-26 07:20] LABS: AGAP 9; ALBUMIN 3.7 g/dL (3.5-5.0); ALKALINE PHOSPHATASE 98 U/L (32-104); BUN 6 mg/dL (8-22); CHLORIDE 102 mmol/L (98-107); COSMO 276; GOT 29 U/L (10-30); GPT 77 U/L (10-36); LIPASE 95 U/L (13-60); POTASSIUM 3.4 mmol/L (3.5-5.1); SODIUM 140 mmol/L (136-145); TCO2 29 mmol/L (25-35)
[2017-04-26] MEDS: CARAFATE PO SCH (08:49)
[2017-04-26] MEDS: BUSPAR PO SCH (08:49)
[2017-04-26] MEDS: NEURONTIN PO SCH (08:49)
[2017-04-26] MEDS: PEPCID PO SCH (08:49)
[2017-04-26 11:23] VITALS: BP 148/78
--- NOTE | 2017-04-26 16:05 | DISCHARGE SUMMARY ---
ADMISSION DATE: 04/21/2017 DISCHARGE DATE: 04/26/2017 CONSULTATIONS: Abiel Maradiaga MD with Gastroenterology. PERTINENT PROCEDURES: 1. Renal CT showed acute pancreatitis worse at the pancreatic head, cholecystectomy, no biliary dilatation. 2. Abdominal ultrasound showed that the common bile duct measures between 5 and 11 mm, fatty infiltration of the liver. 3. ERCP, sphincterotomy and stent placement performed by Dr. Maradiaga. DISCHARGE DIAGNOSES: 1. Acute biliary pancreatitis status post EGD sphincterotomy and stent placement. Stable. 2. Chronic pain syndrome. Patient is on morphine pump. Stable. 3. Chronic peripheral neuropathy. Stable. 4. Hypertension. Stable. 5. Congestive heart failure history, currently euvolemic. HOSPITAL COURSE: Ms. Gillespie is an 81-year-old female who presented to [facility] ED who carries a past medical history of hypertension, CAD, chronic pain with a pain pump in her left lower abdomen with morphine, congestive heart failure. She stated 2 hours prior to getting to the emergency room she had an aching type pain in her epigastric region with no radiation, no accompanying symptoms, no aggravating or alleviating symptoms, and had a spontaneous start and stop. She did have some nausea for 2 days with no vomiting. A CT was performed that showed acute pancreatitis worse at the pancreatic head and a moderate sized hiatal hernia. She was noted to have an amylase of 138 and a lipase of 447. She was given morphine and Zofran in the emergency room and admitted for acute biliary pancreatitis. The patient was transferred from [facility] to [facility] for GI evaluation. She underwent an ERCP with sphincterotomy and stent placement by Dr. Maradiaga. Her liver function tests have improved. She was initiated on a clear liquid diet and tolerated that diet well, and then advanced to a full liquid diet that she tolerated, and then a GI soft diet that she tolerated well. She did not complain of any nausea. She did not complain of any abdominal pain. She had a bowel movement. She has worked with Physical Therapy and she will be discharged home today with home health and physical therapy. VITAL SIGNS AT TIME OF DISCHARGE: Temperature 97.8 degrees, heart rate 80, blood pressure 148/78, O2 is 99% on room air. DISCHARGE DIET: GI soft. DISCHARGE MEDICATIONS PER DR. BRASWELL: 1. Aspirin 81 mg p.o. daily. 2. Atenolol 50 mg p.o. daily. 3. BuSpar 7.5 mg p.o. b.i.d. 4. Pepcid 20 mg p.o. b.i.d. 5. Lasix 40 mg p.o. daily. 6. Gabapentin 200 mg p.o. t.i.d. 7. Isosorbide mononitrate ER 60 mg p.o. daily. 8. Lisinopril 20 mg p.o. daily. 9. Morphine REVENUE SPECIALIST 30 mg IV daily. 10. Multivitamin 1 each p.o. daily. 11. Klor-Con 20 mEq p.o. daily. 12. Ranexa 500 mg p.o. b.i.d. 13. Carafate 1 g p.o. b.i.d. FOLLOWUP: 1. Ms. Gillespie is being discharged home with home health. She is a resident at [facility] in [place] and she will follow up with her regular pain control physician, Dr. Garsia in [place]. 2. Her primary care physician is at [facility] where she resides and with whom she will follow up with. 3. She will also follow up with Dr. Maradiaga for repeat ERCP with stent removal. Ms. Gillespie can return to the ED for any worsening of symptoms. DISCHARGE TIME: 30 minutes. Dictated by CLAUDINE Santiago for Enio Braswell MD cc: Enio Braswell MD
== END 2017-04-26 13:00 | disposition home health service (06) ==
LOC: P.ED 12:39 → SUATTDRO 17:10 → P.MEDSURG 17:10 → 3N 04-21 16:49
PROVIDERS: ATTEND Internal Medicine